=== PATIENT | female | born 1990 | race Caucasian/White ===

== ENCOUNTER → 2020-04-28 | Outpatient (CLI) | payer BC, OTHER | END | disposition home or self-care (01) | LOC: LABWHC1 14:11 | PROVIDERS: ATTEND Internal Medicine | DX: Z20.828 Contact with and (suspected) exposure to other viral communicable diseases (principal) | CPT/HCPCS: U0003; C9803 ==

== ENCOUNTER → 2020-06-01 | Outpatient (CLI) | payer BC, OTHER ==
[2020-06-01 14:44] VITALS: BP 155/96; PULSE 91; RESP 16; TEMP 98.1; BMI 46.4
[2020-06-01 16:12] LABS: HCT 39.9 % (34.0-46.0); HGB 13.1 gm/dL (11.4-16.0); MCH 28.6 pg (25.0-35.0); MCHC 32.8 g/dL (31.0-37.0); MCV 87.2 fL (80.0-100.0); Mean Platelet Volume 6.9; Platelet Count 243 k/uL (150-450); RBC 4.57 m/uL (3.80-5.40); RDW 12.4 % (11.5-15.5); WBC 7.1 k/uL (3.8-10.6)
--- NOTE | 2020-06-01 17:03 | P.HPBAR ---
Bariatric H&P - History & Physicial H&P Date: 06/01/20 History & Physicial: Visit/CC: Initial Visit Patient initial contact: Initial weight: 131.179 kg Initial weight in pounds: 289.20 Height: 5 ft 7.5 in Initial BMI: 44.6 Last weight: Current weight: 136.531 kg Current weight in pounds: 301.00 Current BMI: 46.4 [place] body weight (based on NIH guidelines): 62.369 kg Excess body weight loss: The patient is a 29 year-old F who presents for Bariatric Assessment. 29-year-old female here today to discuss bariatric surgery. BMI 46. Patient thought about doing weight loss surgery for 5 years ago. She went to a previous seminar for that. Patient suffers from PCOS. Patient on metformin for insulin resistance. Patient denies reflux. No history of DVT or dysphagia. Previous a bdominal surgeries include lap appendectomy and laparoscopic cholecystectomy. Denies tobacco use. No previous EGD. Review of Systems The patient denies any acute changes in vision or hearing, no dysphagia or odynophagia, no chest pain or shortness of breath, no dysuria or hematuria, no headache, no runny nose, no rectal bleeding or melena, no unexplained weight loss Past Medical History Past Medical History: GERD/Reflux, GI Bleed Additional Past Medical History / Comment(s): PCOS, Insulin Resistance. PREPARING FOR GASTRIC PROCEDURE. 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 Past Anesthesia/Blood Transfusion Reactions: Motion Sickness Past Psychological History: Depression Additional Psychological History / Comment(s): NOW RESOLVED. Smoking Status: Unknown if ever smoked Past Alcohol Use History: Occasional Past Drug Use History: None Reported - Past Family History Mother Family Medical History: Cancer Additional Family Medical History / Comment(s): ovarian cnacer w/hysterectomy, lupus, some sort of heart disorder Surgical - Exam Vital Signs Temp Pulse Resp BP 98.1 F 91 16 155/96 06/01/20 14:42 06/01/20 14:42 06/01/20 14:42 06/01/20 14:42 Physical exam: General: Well-developed, well-nourished HEENT: Normocephalic, sclerae nonicteric Abdomen: Nontender, nondistended Extremities: No edema Neuro: Alert and oriented Results - Labs 06/01/20 15:32 Bariatric Assessment & Plan (1) Morbid obesity with BMI of 45.0-49.9, adult Narrative/Plan: 29 yo female with morbid obesity. Surgical and nonsurgical options discussed in detail. Will plan upper endoscopy 4-5 months from now. Patient will follow-up with me after her EGD to review the surgical consent form after that. Await supervised weight loss documentation from primary care physician. Risks and be nefits of the surgical options reviewed along with the average expected weight loss. Patient understands and wishes to proceed. Status: Acute Bariatric Checklist Checklist: Plan: Checklist: EGD: 1. Hiatal hernia: 2. H. Pylori: HgbA1c: Vitamin D: Smoking: Never smoker Primary care physician referral: Dr. Sissy Cueva [facility] Psychiatry clearance: Cardiology clearance: Sleep study: Diet journal: VTE risk score: VTE risk level: Rehab needs at discharge:
[2020-06-02 02:30] LABS: African American GFR (CKD) 115.5 (60.0-200.0); Albumin 4.5 g/dL (3.80-4.90); Albumin/Globulin Ratio 2.05 (1.60-3.17); Anion Gap 10.1 mmol/L (4.00-12.00); Calcium 9.2 mg/dL (8.7-10.3); Carbon Dioxide 24.9 mmol/L (21.6-31.8); Globulin 2.2 g/dL (1.6-3.3); Non-African American GFR(CKD) 99.6 (60.0-200.0); Potassium 3.9 mmol/L (3.5-5.5); Total Bilirubin 0.4 mg/dL (0.2-1.2); Total Protein 6.7 g/dL (6.2-8.2)
[2020-06-02 03:43] LABS: Folate, Serum 14.5 ng/mL
[2020-06-02 05:10] LABS: Estimated Average Glucose 99.67; Hemoglobin A1C 5.1 % (4.0-6.0)
== END | disposition home or self-care (01) ==
LOC: BARWHC3 14:15
PROVIDERS: ATTEND Surgery
DX: E66.01 Morbid (severe) obesity due to excess calories (principal); Z68.42 Body mass index [BMI] 45.0-49.9, adult; K90.89 Other intestinal malabsorption; E55.9 Vitamin D deficiency, unspecified
CPT/HCPCS: 80053; 82306; 82607; 82746; 83036; 83540; 84425; 85027; 93005; 99201

== ENCOUNTER 2023-08-22 05:24 | Emergency (ER) | payer BC ==
--- NOTE | 2023-08-22 06:16 | ED ---
Headache HPI - General Chief Complaint: Headache Stated Complaint: Migraine Time Seen by Provider: 08/22/23 05:50 Source: patient, RN notes reviewed Mode of arrival: ambulatory Limitations: no limitations - Related Data Home Medications Medication Instructions Recorded Confirmed metFORMIN HCL [Glucophage] 1,000 mg PO DAILY 10/11/15 11/17/15 Ergocalciferol [Vitamin D2] 50,000 unit PO HENRY 11/13/15 11/17/15 Cyanocobalamin/Cobamamide [Vitamin 1,000 mcg PO DAILY 06/01/20 06/01/20 B-12 5,000 Mcg Tab Sl] Ergocalciferol [Vitamin D2 50,000 unit PO WEEKLY 06/07/20 06/07/20 (DRISDOL)] Allergies Allergy/AdvReac Type Severity Reaction Status Date / Time No Known Allergies Allergy Verified 11/13/15 17:23 Review of Systems ROS Statement: Those systems with pertinent positive or pertinent negative responses have been documented in the HPI. ROS Other: All systems not noted in ROS Statement are negative. Past Medical History Past Medical History: GERD/Reflux, GI Bleed Additional Past Medical History / Comment(s): PCOS, Insulin Resistance. PREPARING FOR GASTRIC PROCEDURE. 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 Past Anesthesia/Blood Transfusion Reactions: Motion Sickness Past Psychological History: Depression Smoking Status: Unknown if ever smoked Past Alcohol Use History: Occasional Past Drug Use History: None Reported - Past Family History Mother Family Medical History: Cancer Additional Family Medical History / Comment(s): ovarian cnacer w/hysterectomy, lupus, some sort of heart disorder General Exam - General Exam Comments Initial Comments: Patient is a 32-year-old female with a past medical history of migraines, not on prophylactic or abortive therapy, who presents to the ED with the chief complaint of a headache and associated nausea. States that this pain awoke her this morning at 1 AM. The patient describes the pain as a throbbing sensation located over her right forehead and temporal region and is associated with light sensitivity. Patient denies any visual or other auras. this prompted the patient to check her blood pressure at home which had a reading of 126/90. The patient denies being on any blood pressure control medication. Patient states that she has not taken anything at home to help alleviate the pain. States that pain is associated with nausea, but no episodes of vomiting. Patient denies cold or flulike symptoms such as fever, nasal congestion, runny nose, or cough. Patient has a history of migraines since 2019, where she underwent an occipital nerve block. Since this time patient has not experienced any migraines, but does suffer from frequent headaches. Patient has been having ongoing headaches over the past 2 days, where she has taken ibuprofen at home to alleviate symptoms. Limitations: no limitations General appearance: alert, in no apparent distress, anxious, other (acute distress) Head exam: Present: atraumatic, normocephalic, normal inspection Eye exam: Present: normal appearance, PERRL, EOMI. Absent: scleral icterus, conjunctival injection, periorbital swelling ENT exam: Present: normal exam, mucous membranes moist Neck exam: Present: normal inspection. Absent: tenderness, meningismus, lymphadenopathy Respiratory exam: Present: normal lung sounds bilaterally. Absent: respiratory distress, wheezes, rales, rhonchi, stridor Cardiovascular Exam: Present: regular rate, normal rhythm, normal heart sounds. Absent: systolic murmur, diastolic murmur, rubs, gallop, clicks GI/Abdominal exam: Present: soft. Absent: distended, tenderness, guarding, rebound, rigid, normal bowel sounds Neurological exam: Present: alert, oriented X3. Absent: CN II-XII intact Skin exam: Present: warm, dry, intact, normal color. Absent: rash Course Vital Signs 08/22/23 05:39 Temperature 98.7 F Pulse Rate 82 Respiratory 18 Rate Blood Pressure 144/90 O2 Sat by Pulse 98 Oximetry - Reevaluation(s) Reevaluation #1: 08/22/23 07:00 States that pain has decreased since medication ministration. Informed patient that respiratory panel came back negative. Medical Decision Making - Medical Decision Making Was pt. sent in by a medical professional or institution (, PA, TAILINGS WORKER, urgent care, hospital, or jail...) When possible be specific @ -No Did you speak to anyone other than the patient for history (EMS, parent, family, police, friend...)? What history was obtained from this source @ -No Did you review nursing and triage notes (agree or disagree)? Why? @ -I reviewed and agree with nursing and triage notes Were old charts reviewed (outside hosp., previous admission, EMS record, old EKG, old radiological studies, urgent care reports/EKG's, jail records)? Report findings @ -No old charts were reviewed Differential Diagnosis (chest pain, altered mental status, abdominal pain women, abdominal pain men, vaginal bleeding, weakness, fever, dyspnea, syncope, he adache, dizziness, GI bleed, back pain, seizure, CVA, palpatations, mental health, musculoskeletal)? @ -Differential Headache: Migraine, tension, cluster, carbon monoxide, central venous thrombosis, pension karma temporal arteritis, acute closure glaucoma, intercranial hemorrhage, mastoiditis, sinusitis, head injury, this is not meant to be an all-inclusive list. EKG interpreted by me (3pts min.). @ -None X-rays interpreted by me (1pt min.). @ -None done CT interpreted by me (1pt min.). @ -None done U/S interpreted by me (1pt. min.). @ -None done What testing was considered but not performed or refused? (CT, X-rays, U/S, labs)? Why? @ -[Basic chemistry panel was considered, but due to patient stating that this migraine feels like when she used to have them, labs were deferred. What meds were considered but not given or refused? Why? @ -None Did you discuss the management of the patient with other professionals (professionals i.e. , PA, TAILINGS WORKER, lab, RT, psych nurse, social and political studies professor, divorce lawyer, teacher, assignment officer, welfare case worker)? Give summary @ -No Was smoking cessation discussed for >3mins.? @ -No Was critical care preformed (if so, how long)? @ -No Were there social determinants of health that impacted care today? How? (Homelessness, low income, unemployed, alcoholism, drug addiction, transportation, low edu. Level, literacy, decrease access to med. care, [facility], rehab)? @ -No Was there de-escalation of care discussed even if they declined (Discuss DNR or withdrawal of care, Hospice)? DNR status @ -No What co-morbidities impacted this encounter? (DM, HTN, Smoking, COPD, CAD, C ancer, CVA, ARF, Chemo, Hep., AIDS, mental health diagnosis, sleep apnea, morbid obesity)? @ -None Was patient admitted / discharged? Hospital course, mention meds given and route, prescriptions, significant lab abnormalities, going to OR and other pertinent info. @ -32-year-old female presents to the ED with chief complaint of headache. Patient was given Toradol, Benadryl, Reglan, and fluid bolus to help alleviate symptoms. Respiratory panel negative. Undiagnosed new problem with uncertain prognosis? @ -No Drug Therapy requiring intensive monitoring for toxicity (Heparin, Nitro, Insulin, Cardizem)? @ -No Were any procedures done? @ -No Diagnosis/symptom? @ -Migraine without aura Acute, or Chronic, or Acute on Chronic? @ -Acute Uncomplicated (without systemic symptoms) or Complicated (systemic symptoms)? @ -Uncomplicated Side effects of treatment? @ -No Exacerbation, Progression, or Severe Exacerbation? @ -No Poses a threat to life or bodily function? How? (Chest pain, [place], [place], pneumonia, PE, COPD, DKA, ARF, appy, cholecystitis, CVA, Diverticulitis, Homicidal, Suicidal, threat to staff... and all critical care pts) @ -No - Lab Data Lab Results 08/22/23 Range/Units 06:17 Influenza Type A (PCR) Not Detected (Not Detectd) Influenza Type B (PCR) Not Detected (Not Detectd) RSV (PCR) Not Detected (Not Detectd) SARS-CoV-2 (PCR) Not Detected (Not Detectd) Disposition Clinical Impression: Migraine without aura and responsive to treatment Disposition: HOME SELF-CARE Condition: Good Additional Instructions: Please return to the Emergency Department if symptoms worsen or any other concerns. Discussed management at home with Excedrin, ibuprofen, Tylenol, and Benadryl if needed. Is patient prescribed a controlled substance at d/c from ED?: No Referrals: None,Stated [Primary Care Provider] - 1-2 days
[2023-08-22 06:19] VITALS: RESP 18
[2023-08-22] MEDS: SODIUM CHLORIDE 0.9% 1,000 ML IV STA (06:20)
[2023-08-22] MEDS: diphenhydrAMINE 50 MG/ML 1 ML VIAL IVP STA (06:29)
[2023-08-22] MEDS: KETOROLAC 15 MG/ML 1 ML VIAL IVP STA (06:29)
[2023-08-22] MEDS: METOCLOPRAMIDE 5 MG/ML 2 ML VIAL IVP STA (06:37)
[2023-08-22 08:15] VITALS: BP 135/82; PULSE 80; TEMP 98.1
== END 2023-08-22 08:17 | disposition home or self-care (01) ==
LOC: EC 05:24
DX: G43.009 Migraine without aura, not intractable, without status migrainosus (principal); Z86.59 Personal history of other mental and behavioral disorders; Z90.49 Acquired absence of other specified parts of digestive tract; Z20.822 Contact with and (suspected) exposure to COVID-19
CPT/HCPCS: 87636; 99283; 96374; 96375 ×2; 96361; J1200; J2765; J1885